=== PATIENT | male | born 1950 | race African-American/Black ===

== ENCOUNTER 2017-04-03 19:23 | Inpatient (IN) | payer MEDICARE, OTHER ==
[~2017-04-03] VITALS: Ht 180.3 cm; Wt 81.2 kg
[~2017-04-03 19:23] MED LIST: AMLO10TA80 PO; ASPI-1160 PO; CLOP75TA33 PO; FURO40TA5 PO; HYDR-4134 PO
[2017-04-03 20:33] LABS: BASOPHILS % 2.2 % (0.0-2.0); EOSINOPHILS % 6.3 % (0.0-5.0); HEMATOCRIT. 32.6 % (42.0-52.0); HEMOGLOBIN. 10.4 g/dL (14.0-18.0); LYMPHOCYTES % 20.3 % (20.0-50.0); MEAN CORPUSCULAR HEMOGLOBIN 24.5 pg (28.0-32.0); MEAN CORPUSCULAR VOLUME 76.6 fL (80.0-94.0); MEAN PLATELET VOLUME 8.9 fl (7.4-10.4); MONOCYTES % 9.7 % (2.0-8.0); NEUTROPHILS % 61.5 % (40.0-76.0); PLATELET 187 x1000/uL (130-400); RED BLOOD CELL COUNT 4.25 mill/uL (4.7-6.1); RED CELL DISTRIBUTION WIDTH 18.7 % (11.6-14.6)
[2017-04-03 20:36] LABS: INR 1.3; PROTHROMBIN TIME 13.2 sec
[2017-04-03 20:39] LABS: CARBON DIOXIDE 21 mEq/L (21-32); CHLORIDE 108 mEq/L (98-107)
[2017-04-03 20:45] LABS: TROPONIN I 0.06 ng/mL (0.00-0.04)
[2017-04-03] MEDS ORDERED: ASPIRIN 81MG TABLET PO ONE (21:00)
[2017-04-03] MEDS ORDERED: FUROSEMIDE 40MG/4ML VIAL IV ONE (21:00)
[2017-04-03] MEDS ORDERED: ALBUTEROL (0.5%) 2.5MG/0.5ML NEB HHN ONE (21:30)
[2017-04-03 22:43] LABS: *AMPHETAMINES SCREEN URINE NEGATIVE (NEGATIVE); *BARBITURATES SCREEN URINE NEGATIVE (NEGATIVE); *BENZODIAZEPINES SCREEN URINE NEGATIVE (NEGATIVE); *COCAINE SCREEN URINE NEGATIVE (NEGATIVE); CANNABINOID URINE SCREEN NEGATIVE (NEGATIVE); METHADONE URINE SCREEN NEGATIVE (NEGATIVE); OPIATES URINE SCREEN NEGATIVE (NEGATIVE); PHENCYCLIDINE URINE SCREEN NEGATIVE (NEGATIVE)
[2017-04-03 23:44] VITALS: BP 139/92
[2017-04-04] VITALS (12 sets, daily range): BP systolic 126–143; BP diastolic 69–107
[2017-04-04] MEDS ORDERED: CLONIDINE 0.1MG TABLET PO PRN (03:15)
[2017-04-04] MEDS ORDERED: MAGNESIUM/ALUMINUM HYDROXIDE/SIMETHICONE 30ML UDC PO PRN (03:15)
[2017-04-04] MEDS ORDERED: ONDANSETRON HCL 4MG/2ML VIAL IV PRN (03:15)
[2017-04-04] MEDS ORDERED: GUAIFENESIN 200MG/10ML SUGAR FREE UDC PO PRN (03:15)
[2017-04-04] MEDS ORDERED: HYDROMORPHONE HCL/PF 2MG/ML CPJ IV PRN (03:15)
[2017-04-04] MEDS ORDERED: ACETAMINOPHEN 325MG TABLET PO PRN (03:15)
[2017-04-04] MEDS ORDERED: LANTUS 10 UNIT (03:40)
[2017-04-04 08:05] LABS: CREATINE KINASE MB FRACTION 2.1 ng/mL (0.5-3.6); TROPONIN I 0.05 ng/mL (0.00-0.04)
[2017-04-04] MEDS: FUROSEMIDE 40MG/4ML VIAL IV SCH (08:28)
[2017-04-04] MEDS: ENOXAPARIN 40MG/0.4ML SYR SUBCUT SCH (08:28)
[2017-04-04] MEDS: ASPIRIN 81MG EC TABLET PO SCH (08:28)
[2017-04-04] MEDS: CLOPIDOGREL 75MG TABLET PO SCH (11:58)
[2017-04-04] MEDS: AMLODIPINE 10MG TABLET PO SCH (11:58)
[2017-04-04] MEDS ORDERED: HYDROCODONE/ACETAMINOPHEN 5/325MG TABLET PO PRN (12:00)
[2017-04-04 15:03] LABS: CLARITY URINE CLEAR (CLEAR); COLOR URINE YELLOW (YELLOW); GLUCOSE URINE NEGATIVE (NEGATIVE); KETONES URINE NEGATIVE (NEGATIVE); LEUKOCYTE ESTERASE URINE NEGATIVE (NEGATIVE); NITRITE URINE NEGATIVE (NEGATIVE); OCCULT BLOOD URINE NEGATIVE (NEGATIVE); PH URINE 5.5 (4.5-8.0); PROTEIN URINE 1+ (NEGATIVE); SPECIFIC GRAVITY URINE 1.012 (1.005-1.030)
[2017-04-04 15:53] LABS: CREATINE KINASE MB FRACTION 2.1 ng/mL (0.5-3.6); TROPONIN I 0.05 ng/mL (0.00-0.04)
[2017-04-04] MEDS: IPRATROPIUM/ALBUTEROL 0.5-3(2.5)MG/3ML NEB INH PRN ×2 (16:55→20:49)
[2017-04-04] MEDS: NITROGLYCERIN OINT 1GM/INCH UDPKT TD SCH ×2 (17:11→21:11)
[2017-04-04] MEDS ORDERED: DEXTROSE 50% WATER 50ML SYRINGE IV PRN (20:00)
[2017-04-04] MEDS: CARVEDILOL 3.125 MG TABLET PO SCH (20:09)
[2017-04-04] MEDS: BLOOD SUGAR DIAGNOSTIC STRIP TEST SCH (20:09)
[2017-04-04] MEDS: INSULIN LISPRO 100 UNITS/ML SUBCUT SCH (20:31)
[2017-04-05] VITALS (13 sets, daily range): BP systolic 115–146; BP diastolic 58–92
[2017-04-05] MEDS: IPRATROPIUM/ALBUTEROL 0.5-3(2.5)MG/3ML NEB INH PRN ×3 (00:37→20:49)
[2017-04-05] MEDS: DOCUSATE SODIUM 100MG CAPSULE PO PRN ×2 (01:31→08:50)
[2017-04-05] MEDS: NITROGLYCERIN OINT 1GM/INCH UDPKT TD SCH ×3 (05:13→21:06)
[2017-04-05] MEDS: BLOOD SUGAR DIAGNOSTIC STRIP TEST SCH ×4 (06:05→21:06)
[2017-04-05] MEDS: INSULIN LISPRO 100 UNITS/ML SUBCUT SCH ×4 (06:05→21:00)
[2017-04-05 06:47] LABS: BASOPHILS % 1.8 % (0.0-2.0); EOSINOPHILS % 6.1 % (0.0-5.0); HEMATOCRIT. 31.7 % (42.0-52.0); HEMOGLOBIN. 9.9 g/dL (14.0-18.0); LYMPHOCYTES % 15.3 % (20.0-50.0); MEAN CORPUSCULAR VOLUME 76.9 fL (80.0-94.0); MEAN PLATELET VOLUME 9.2 fl (7.4-10.4); MONOCYTES % 10.8 % (2.0-8.0); PLATELET 182 x1000/uL (130-400); RED BLOOD CELL COUNT 4.13 mill/uL (4.7-6.1); RED CELL DISTRIBUTION WIDTH 18.9 % (11.6-14.6)
[2017-04-05 07:04] LABS: CHLORIDE 109 mEq/L (98-107)
[2017-04-05 07:11] LABS: CARBON DIOXIDE 22 mEq/L (21-32); HDL CHOLESTEROL 44 mg/dL (40-59); LDL CHOLESTEROL 91 mg/dL (5-100); TROPONIN I 0.06 ng/mL (0.00-0.04)
[2017-04-05] MEDS: CLOPIDOGREL 75MG TABLET PO SCH (08:50)
[2017-04-05] MEDS: ENOXAPARIN 40MG/0.4ML SYR SUBCUT SCH (08:50)
[2017-04-05] MEDS: ASPIRIN 81MG EC TABLET PO SCH (08:50)
[2017-04-05] MEDS: AMLODIPINE 10MG TABLET PO SCH (08:51)
[2017-04-05] MEDS: CARVEDILOL 3.125 MG TABLET PO SCH ×2 (08:51→21:05)
[2017-04-05] MEDS: FUROSEMIDE 40MG/4ML VIAL IV SCH (08:54)
[2017-04-05] MEDS ORDERED: ASPIRIN 81MG TABLET PO SCH (09:00)
[2017-04-06] VITALS (13 sets, daily range): BP systolic 115–140; BP diastolic 48–85
[2017-04-06] MEDS: IPRATROPIUM/ALBUTEROL 0.5-3(2.5)MG/3ML NEB INH PRN ×4 (00:51→21:00)
[2017-04-06] MEDS: NITROGLYCERIN OINT 1GM/INCH UDPKT TD SCH ×3 (05:03→22:18)
[2017-04-06 07:09] LABS: BASOPHILS % 1.5 % (0.0-2.0); EOSINOPHILS % 8.2 % (0.0-5.0); HEMATOCRIT. 32.1 % (42.0-52.0); HEMOGLOBIN. 10.2 g/dL (14.0-18.0); LYMPHOCYTES % 18.6 % (20.0-50.0); MEAN CORPUSCULAR HEMOGLOBIN 24.4 pg (28.0-32.0); MEAN CORPUSCULAR VOLUME 76.5 fL (80.0-94.0); MEAN PLATELET VOLUME 9.1 fl (7.4-10.4); MONOCYTES % 9.2 % (2.0-8.0); NEUTROPHILS % 62.5 % (40.0-76.0); PLATELET 172 x1000/uL (130-400); RED CELL DISTRIBUTION WIDTH 18.5 % (11.6-14.6)
[2017-04-06] MEDS: INSULIN LISPRO 100 UNITS/ML SUBCUT SCH ×4 (07:20→21:00)
[2017-04-06] MEDS: BLOOD SUGAR DIAGNOSTIC STRIP TEST SCH ×4 (07:23→21:00)
[2017-04-06] MEDS: CLOPIDOGREL 75MG TABLET PO SCH (08:34)
[2017-04-06] MEDS: ENOXAPARIN 40MG/0.4ML SYR SUBCUT SCH (08:34)
[2017-04-06] MEDS: AMLODIPINE 10MG TABLET PO SCH (08:35)
[2017-04-06] MEDS: CARVEDILOL 3.125 MG TABLET PO SCH ×2 (08:35→21:17)
[2017-04-06] MEDS: ASPIRIN 81MG EC TABLET PO SCH (08:35)
[2017-04-06] MEDS: FUROSEMIDE 40MG/4ML VIAL IV SCH (09:45)
[2017-04-06] MEDS: ISOSORB DINIT/HYDRALAZINE HCL 20/37.5MG TABLET PO SCH ×2 (13:38→22:18)
[2017-04-07] VITALS (12 sets, daily range): BP systolic 108–144; BP diastolic 52–85
[2017-04-07] MEDS: IPRATROPIUM/ALBUTEROL 0.5-3(2.5)MG/3ML NEB INH PRN ×4 (01:03→11:43)
[2017-04-07] MEDS: ISOSORB DINIT/HYDRALAZINE HCL 20/37.5MG TABLET PO SCH ×3 (06:07→21:13)
[2017-04-07] MEDS: DOCUSATE SODIUM 100MG CAPSULE PO PRN (06:07)
[2017-04-07] MEDS: NITROGLYCERIN OINT 1GM/INCH UDPKT TD SCH ×3 (06:07→22:46)
[2017-04-07] MEDS: BLOOD SUGAR DIAGNOSTIC STRIP TEST SCH ×4 (06:50→20:55)
[2017-04-07] MEDS: INSULIN LISPRO 100 UNITS/ML SUBCUT SCH ×4 (07:20→20:55)
[2017-04-07 08:22] LABS: PHOSPHORUS 3.5 mg/dL (2.5-4.9)
[2017-04-07] MEDS: CLOPIDOGREL 75MG TABLET PO SCH (08:40)
[2017-04-07] MEDS: ASPIRIN 81MG EC TABLET PO SCH (08:41)
[2017-04-07] MEDS: TAMSULOSIN HCL 0.4MG SR CAPSULE PO SCH (08:41)
[2017-04-07] MEDS: AMLODIPINE 10MG TABLET PO SCH (08:41)
[2017-04-07] MEDS: FUROSEMIDE 40MG/4ML VIAL IV SCH (08:41)
[2017-04-07] MEDS: CARVEDILOL 3.125 MG TABLET PO SCH ×2 (08:41→21:13)
[2017-04-07] MEDS: ENOXAPARIN 40MG/0.4ML SYR SUBCUT SCH (08:42)
[2017-04-07] MEDS ORDERED: FUROSEMIDE 40MG TABLET PO SCH (10:00)
[2017-04-07] MEDS ORDERED: SENNOSIDES 8.6MG TABLET PO PRN (12:15)
[2017-04-07] MEDS: FERROUS SULFATE 325MG TABLET PO SCH ×2 (12:58→17:06)
[2017-04-07] MEDS: IPRATROPIUM/ALBUTEROL 0.5-3(2.5)MG/3ML NEB INH SCH ×2 (15:41→21:18)
[2017-04-07] MEDS: DOCUSATE SODIUM 100MG CAPSULE PO SCH (17:05)
[2017-04-07] MEDS ORDERED: LACTULOSE 20G/30ML UDC PO PRN (21:00)
[2017-04-08] VITALS (10 sets, daily range): BP systolic 111–137; BP diastolic 55–84
[2017-04-08] MEDS: IPRATROPIUM/ALBUTEROL 0.5-3(2.5)MG/3ML NEB INH SCH ×5 (00:42→16:44)
[2017-04-08] MEDS: ISOSORB DINIT/HYDRALAZINE HCL 20/37.5MG TABLET PO SCH ×2 (06:13→14:58)
[2017-04-08] MEDS: NITROGLYCERIN OINT 1GM/INCH UDPKT TD SCH ×2 (06:13→14:59)
[2017-04-08] MEDS: BLOOD SUGAR DIAGNOSTIC STRIP TEST SCH ×3 (06:50→16:50)
[2017-04-08] MEDS: INSULIN LISPRO 100 UNITS/ML SUBCUT SCH ×2 (07:20→12:56)
[2017-04-08] MEDS: AMLODIPINE 10MG TABLET PO SCH (08:59)
[2017-04-08] MEDS: CLOPIDOGREL 75MG TABLET PO SCH (08:59)
[2017-04-08] MEDS: CARVEDILOL 3.125 MG TABLET PO SCH (08:59)
[2017-04-08] MEDS: DOCUSATE SODIUM 100MG CAPSULE PO SCH (09:00)
[2017-04-08] MEDS ORDERED: FUROSEMIDE 40MG/4ML VIAL IVP SCH (09:00)
[2017-04-08] MEDS: TAMSULOSIN HCL 0.4MG SR CAPSULE PO SCH (09:00)
[2017-04-08] MEDS: FERROUS SULFATE 325MG TABLET PO SCH ×2 (09:00→12:53)
[2017-04-08] MEDS: ENOXAPARIN 40MG/0.4ML SYR SUBCUT SCH (09:00)
[2017-04-08] MEDS: ASPIRIN 81MG EC TABLET PO SCH (09:00)
[2017-04-08 15:09] LABS: A/G RATIO 0.9 (0.7-1.7); ALBUMIN 3.3 g/dL (2.9-4.4); ALPHA-1-GLOBULIN 0.3 g/dL (0.0-0.4); ALPHA-2-GLOBULIN 0.6 g/dL (0.4-1.0); BETA GLOBULIN 1.1 g/dL (0.7-1.3); GAMMA GLOBULINS 1.7 g/dL (0.4-1.8); GLOBULIN TOTAL 3.7 g/dL (2.2-3.9); M-SPIKE Not Observed g/dL (Not Observed)
[2017-04-09] MEDS ORDERED: ENOXAPARIN 40MG/0.4ML SYR SUBCUT SCH (09:00)
== END 2017-04-08 17:39 | DRG 291 ==
LOC: ER 19:40 → 3WST 21:35 → ENRESERV 22:05
PROVIDERS: ADMIT Hospitalist; ATTEND Hospitalist
DX: I13.0 Hypertensive heart and chronic kidney disease with heart failure and stage 1 through stage 4 chronic kidney disease, or unspecified chronic kidney disease (principal); I50.23 Acute on chronic systolic (congestive) heart failure; J96.00 Acute respiratory failure, unspecified whether with hypoxia or hypercapnia; E43 Unspecified severe protein-calorie malnutrition; L97.909 Non-pressure chronic ulcer of unspecified part of unspecified lower leg with unspecified severity; N17.9 Acute kidney failure, unspecified; D63.1 Anemia in chronic kidney disease; E11.22 Type 2 diabetes mellitus with diabetic chronic kidney disease; N18.3 Chronic kidney disease, stage 3 (moderate); E11.622 Type 2 diabetes mellitus with other skin ulcer; E78.5 Hyperlipidemia, unspecified; I25.10 Atherosclerotic heart disease of native coronary artery without angina pectoris; E87.70 Fluid overload, unspecified; I25.5 Ischemic cardiomyopathy; I27.2 Other secondary pulmonary hypertension; I48.91 Unspecified atrial fibrillation; I49.3 Ventricular premature depolarization; J45.909 Unspecified asthma, uncomplicated; N40.0 Benign prostatic hyperplasia without lower urinary tract symptoms; Z79.82 Long term (current) use of aspirin; Z86.73 Personal history of transient ischemic attack (TIA), and cerebral infarction without residual deficits; Z87.891 Personal history of nicotine dependence; Z95.1 Presence of aortocoronary bypass graft; Z95.810 Presence of automatic (implantable) cardiac defibrillator; Z88.8 Allergy status to other drugs, medicaments and biological substances; Z95.2 Presence of prosthetic heart valve; I25.2 Old myocardial infarction; Z68.25 Body mass index [BMI] 25.0-25.9, adult
CPT/HCPCS: 36415; 71010; 76770; 80048; 80053; 80061; 80305; 81001; 82553; 82728; 82962; 83540; 83550; 83735; 83880; 84100; 84153; 84155; 84165; 84484; 85025; 85610; 93005; 93306; 93970; 94640; 96374; 97162; 97167; 97530; 99285; J1650; J1815; J1940; J7611; J7620